=== PATIENT | female | born 1985 | race Caucasian/White ===

== ENCOUNTER 2018-05-09 22:59 | Observation (INO) ==
[2018-05-09] MEDS ORDERED: 0.9 % Sodium Chloride 1,000 ML IVC ONE (23:32)
[2018-05-09] MEDS ORDERED: Ondansetron 4 MG/2 ML VIAL IVP ONE (23:33)
--- NOTE | 2018-05-09 23:38 | Emergency Department Note ---
Disposition Clinical Impression: Gastroenteritis Disposition: Admitted As Inpatient Condition: Fair Time of Disposition: 00:53 Abdominal Pain HPI - General Chief Complaint: ED Abdominal Pain Stated Complaint: stomach pain nausea dry heaving fast heart rate Time Seen by Provider: 05/09/18 23:30 Source: patient Nursing Notes Reviewed: Yes Vital Signs Reviewed: Yes - History of Present Illness HPI Narrative: 4 days ago Miss Rendon noticed some mid upper abdominal pain that she describes as "burning" in nature. No radiation to the back or lower into the abdomen. She does describe some burning into the chest with some mild shortness of breath as well. She has been throwing up frequently especially right after trying to eat for the last 4 days including a lot of dry heaving tonight. Urine output is decreased. She has had some yellowish diarrhea over the last couple of days as well. No recent travel. No ill contacts with similar symptoms. 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 Pain Scale: 6 - Related Data Home Medications Medication Instructions Recorded Confirmed Medroxyprogesterone Acetate 150 mg IM Q3M 05/09/18 05/09/18 [Depo-Provera] Pantoprazole Sodium [Protonix] 40 mg PO DAILY 05/09/18 05/09/18 Allergies Allergy/AdvReac Type Severity Reaction Status Date / Time codeine Allergy Hives Verified 05/09/18 23:10 Sulfa (Sulfonamide Allergy See Verified 05/09/18 23:10 Antibiotics) Comments Constitutional: Reports: fever (Subjective fever), chills ENT ED: Denies: dysphagia Cardiovascular: Reports: as per HPI, chest pain Respiratory: Denies: cough Gastrointestinal: Reports: abdominal pain, nausea, vomiting, diarrhea. Denies: melena, hematochezia Genitourinary: Reports: as per HPI, abnormal menses (No menses secondary to depo shot) Musculoskeletal: Denies: myalgia Neurological: Reports: other (Dizzy and lightheaded on standing the last couple of days) Endocrine: Reports: fatigue Abdominal Pain PMH - Past Medical History Medical history: Reports: GERD Female Surgical History: Reports: cholecystectomy, orthopedic, other, other [employer] history: Reports: endometriosis Psychiatric history: Reports: anxiety, depression - Social History Smoking status: Never smoker Alcohol use: Reports: none Drug use: Reports: none Physical Exam - General Limitations: no limitations General appearance: alert, other (Appears tired) - Head Head exam: atraumatic, normocephalic - Eye Eye exam: Present: normal appearance. Absent: scleral icterus - ENT ENT exam: mucous membranes dry - Respiratory Respiratory exam: Present: normal lung sounds bilaterally. Absent: respiratory distress - Cardiovascular Cardiovascular exam: Present: normal rhythm, tachycardia, normal heart sounds. Absent: systolic murmur, diastolic murmur - Abdominal Exam Abdominal exam: Present: soft, tenderness, normal bowel sounds, other ( Palpation of epigastrium induced nausea). Absent: distention, guarding, rebound , rigidity Abdominal tenderness: Present: epigastrium, moderate - Extremities Exam Extremities exam: Present: normal inspection. Absent: normal capillary refill ( Capillary refill somewhat delayed at 3 seconds), pedal edema - Neurological Exam Neurological exam: Present: alert - Psychiatric Psychiatric exam: Present: normal affect, normal mood - Skin Skin exam: Present: warm, dry Course Vital Signs Temperature 99 F 05/09/18 23:13 Pulse Rate 111 05/09/18 23:13 Respiratory Rate 16 05/09/18 23:13 Blood Pressure 135/98 05/09/18 23:13 O2 Sat by Pulse Oximetry 96 05/09/18 23:13 Temperature 99 F 05/09/18 23:13 Pulse Rate 104 05/10/18 01:53 Respiratory Rate 18 05/10/18 01:53 Blood Pressure 119/74 05/10/18 01:53 O2 Sat by Pulse Oximetry 98 05/10/18 01:53 Oxygen Delivery Oxygen Delivery Room Air Abdominal Pain - MDM Narrative Medical decision making narrative: Gastroenteritis. She continued to feel nauseated however did not have further emesis during her time here in the emergency department. Nevertheless she did require Zofran and Phenergan but still does not feel as though she is up to a by mouth challenge. Vital signs are better but she is still feeling somewhat dizzy and lightheaded when she went to urinate a second time. She did show some signs of significant dehydration on presentation and it would probably be most prudent to rest her bowels continue to give her IV fluids and control her nausea. Repeat abdominal exam after acute abdominal series resulted demonstrates positive bowel sounds nondistended still has some tenderness in the epigastric region but not as much as initially and repeat palpation did not induce further nausea. I do not think that she has a surgical or acute abdomen. I spoke with the covering hospitalist and presented the case. He accepted admission. Ms. Rendon will be transferred to the floor in stable condition. - Lab Data Lab results reviewed: Yes I reviewed the patient's lab results. Result diagrams: 05/09/18 22:50 05/09/18 22:50 Lab Results 05/09/18 05/09/18 05/09/18 Range/Units 22:50 22:50 22:50 WBC 6.5 (4.3-11.1) K/mcL RBC 4.28 (3.82-4.97) M/mcL Hgb 13.9 (11.5-15.4) g/dL Hct 38.7 (35.3-44.9) % MCV 90.4 (83.0-100.0) fL MCH 32.5 (28.0-33.3) pg MCHC 35.9 H (31.6-35.5) g/dL RDW 11.5 (11.5-14.5) % Plt Count 223 (140-400) K/mcL MPV 10.2 (9.4-12.4) fL Immature Gran % 0.2 (0-4) % Seg Neutrophils % 59.4 % Lymphocytes % 33.0 % Monocytes % 5.7 % Eosinophils % 1.4 % Basophils % 0.3 % Neutrophils # 3.9 (1.6-8.9) K/mcL Lymphocytes # 2.1 (0.6-4.6) K/mcL Monocytes # 0.4 (0.0-1.3) K/mcL Eosinophils # 0.1 (0.0-0.6) K/mcL Basophils # 0.0 (0.0-0.2) K/mcL Sodium 135 L (136-145) mEq/L Potassium 3.4 L (3.5-5.1) mEq/L Chloride 102 (98-107) mEq/L Carbon Dioxide 21 L (23-29) mEq/L BUN 10 (6-20) mg/dL Creatinine 0.98 (0.60-1.20) mg/dL Est GFR ( Amer) > 60 (> 60) Est GFR (Non-Af Amer) > 60 (> 60) BUN/Creatinine Ratio 10 (6-26) Glucose 96 (70-105) mg/dL Calculated Osmolality 279 L (280-300) Lactic Acid 0.7 (0.5-2.2) mmol/L Calcium 9.9 (8.6-10.3) mg/dL Magnesium 2.0 (1.6-2.6) mg/dL Total Bilirubin 1.3 H (0.3-1.0) mg/dL Direct Bilirubin (0.0-0.2) mg/dL AST 18 (13-39) Units/L ALT 18 (7-52) Units/L Alkaline Phosphatase 48 (34-104) Units/L Serum Total Protein 7.3 (6.4-8.9) g/dL Albumin 4.6 (3.5-5.7) g/dL Globulin 2.7 (2.4-3.5) g/dL Albumin/Globulin Ratio 1.7 (1.1-2.2) Amylase (29-103) Units/L Lipase (11-82) Units/L Urine Color (Yellow) Urine Clarity (Clear) Urine pH (5.0-8.0) pH Units Ur Specific [place] (1.010-1.025) Urine Protein (Neg-Trace) mg/dL Urine Glucose (UA) (Normal) mg/dL Urine Ketones (Negative) mg/dL Urine Blood (Negative) Urine Nitrite (Negative) Urine Bilirubin (Negative) Urine Urobilinogen (Normal) mg/dL Ur Leukocyte Esterase (Negative) Urine Microscopic RBC (0-3) per hpf Ur Squamous Epith Cells (None-Few) per lpf Amorphous Sediment (Few) Ur Culture Indicated? (NO) Urine Test (Negative) 05/09/18 05/09/18 05/09/18 Range/Units 22:50 23:52 23:52 WBC (4.3-11.1) K/mcL RBC (3.82-4.97) M/mcL Hgb (11.5-15.4) g/dL Hct (35.3-44.9) % MCV (83.0-100.0) fL MCH (28.0-33.3) pg MCHC (31.6-35.5) g/dL RDW (11.5-14.5) % Plt Count (140-400) K/mcL MPV (9.4-12.4) fL Immature Gran % (0-4) % Seg Neutrophils % % Lymphocytes % % Monocytes % % Eosinophils % % Basophils % % Neutrophils # (1.6-8.9) K/mcL Lymphocytes # (0.6-4.6) K/mcL Monocytes # (0.0-1.3) K/mcL Eosinophils # (0.0-0.6) K/mcL Basophils # (0.0-0.2) K/mcL Sodium (136-145) mEq/L Potassium (3.5-5.1) mEq/L Chloride (98-107) mEq/L Carbon Dioxide (23-29) mEq/L BUN (6-20) mg/dL Creatinine (0.60-1.20) mg/dL Est GFR ( Amer) (> 60) Est GFR (Non-Af Amer) (> 60) BUN/Creatinine Ratio (6-26) Glucose (70-105) mg/dL Calculated Osmolality (280-300) Lactic Acid (0.5-2.2) mmol/L Calcium (8.6-10.3) mg/dL Magnesium (1.6-2.6) mg/dL Total Bilirubin (0.3-1.0) mg/dL Direct Bilirubin (0.0-0.2) mg/dL AST (13-39) Units/L ALT (7-52) Units/L Alkaline Phosphatase (34-104) Units/L Serum Total Protein (6.4-8.9) g/dL Albumin (3.5-5.7) g/dL Globulin (2.4-3.5) g/dL Albumin/Globulin Ratio (1.1-2.2) Amylase 38 (29-103) Units/L Lipase 19 (11-82) Units/L Urine Color Yellow (Yellow) Urine Clarity Slightly Cloudy A (Clear) Urine pH 5.5 (5.0-8.0) pH Units Ur Specific [place] >= 1.030 H (1.010-1.025) Urine Protein 30 H (Neg-Trace) mg/dL Urine Glucose (UA) Normal (Normal) mg/dL Urine Ketones 40 H (Negative) mg/dL Urine Blood Small H (Negative) Urine Nitrite Negative (Negative) Urine Bilirubin Moderate H (Negative) Urine Urobilinogen Normal (Normal) mg/dL Ur Leukocyte Esterase Negative (Negative) Urine Microscopic RBC 3-5 H (0-3) per hpf Ur Squamous Epith Cells Few (None-Few) per lpf Amorphous Sediment Few (Few) Ur Culture Indicated? NO (NO) Urine Test Negative (Negative) 05/10/18 Range/Units 00:00 WBC (4.3-11.1) K/mcL RBC (3.82-4.97) M/mcL Hgb (11.5-15.4) g/dL Hct (35.3-44.9) % MCV (83.0-100.0) fL MCH (28.0-33.3) pg MCHC (31.6-35.5) g/dL RDW (11.5-14.5) % Plt Count (140-400) K/mcL MPV (9.4-12.4) fL Immature Gran % (0-4) % Seg Neutrophils % % Lymphocytes % % Monocytes % % Eosinophils % % Basophils % % Neutrophils # (1.6-8.9) K/mcL Lymphocytes # (0.6-4.6) K/mcL Monocytes # (0.0-1.3) K/mcL Eosinophils # (0.0-0.6) K/mcL Basophils # (0.0-0.2) K/mcL Sodium (136-145) mEq/L Potassium (3.5-5.1) mEq/L Chloride (98-107) mEq/L Carbon Dioxide (23-29) mEq/L BUN (6-20) mg/dL Creatinine (0.60-1.20) mg/dL Est GFR ( Amer) (> 60) Est GFR (Non-Af Amer) (> 60) BUN/Creatinine Ratio (6-26) Glucose (70-105) mg/dL Calculated Osmolality (280-300) Lactic Acid (0.5-2.2) mmol/L Calcium (8.6-10.3) mg/dL Magnesium (1.6-2.6) mg/dL Total Bilirubin (0.3-1.0) mg/dL Direct Bilirubin 0.3 H (0.0-0.2) mg/dL AST (13-39) Units/L ALT (7-52) Units/L Alkaline Phosphatase (34-104) Units/L Serum Total Protein (6.4-8.9) g/dL Albumin (3.5-5.7) g/dL Globulin (2.4-3.5) g/dL Albumin/Globulin Ratio (1.1-2.2) Amylase (29-103) Units/L Lipase (11-82) Units/L Urine Color (Yellow) Urine Clarity (Clear) Urine pH (5.0-8.0) pH Units Ur Specific [place] (1.010-1.025) Urine Protein (Neg-Trace) mg/dL Urine Glucose (UA) (Normal) mg/dL Urine Ketones (Negative) mg/dL Urine Blood (Negative) Urine Nitrite (Negative) Urine Bilirubin (Negative) Urine Urobilinogen (Normal) mg/dL Ur Leukocyte Esterase (Negative) Urine Microscopic RBC (0-3) per hpf Ur Squamous Epith Cells (None-Few) per lpf Amorphous Sediment (Few) Ur Culture Indicated? (NO) Urine Test (Negative) - Radiology Data Radiology results reviewed: Yes I reviewed the patient's radiology results. - EKG Data EKG attestation: Yes I reviewed and interpreted this EKG. EKG results narrative: EKG as interpreted by me sinus tachycardia 111 bpm no T-wave abnormalities. No ST elevation. ST depression in all inferior leads V3 V4 V5 V6. Normal axis. No evidence of hypertrophy. No comparison available.
[2018-05-09 23:56] LABS: Basophils % 0.3 %; Eosinophils # 0.1 K/mcL (0.0-0.6); Eosinophils % 1.4 %; Hematocrit 38.7 % (35.3-44.9); Hemoglobin 13.9 g/dL (11.5-15.4); Immature Granulocytes % 0.2 % (0-4); Lymphocytes # 2.1 K/mcL (0.6-4.6); Mean Corpuscular HGB Conc 35.9 g/dL (31.6-35.5); Mean Corpuscular Hemoglobin 32.5 pg (28.0-33.3); Mean Corpuscular Volume 90.4 fL (83.0-100.0); Mean Platelet Volume 10.2 fL (9.4-12.4); Monocytes # 0.4 K/mcL (0.0-1.3); Monocytes % 5.7 %; Neutrophils # 3.9 K/mcL (1.6-8.9); Platelet Count 223 K/mcL (140-400); Red Blood Count 4.28 M/mcL (3.82-4.97); Red Cell Distribution Width 11.5 % (11.5-14.5); Segmented Neutrophils % 59.4 %
[2018-05-09 23:59] LABS: Bilirubin,Urine Moderate (Negative); Blood,Urine Small (Negative); Clarity,Urine Slightly Cloudy (Clear); Color,Urine Yellow (Yellow); Glucose,Urine (UA) Normal (Normal); Ketones,Urine 40 mg/dL (Negative); Leukocyte Esterase,Urine Negative (Negative); Nitrite,Urine Negative (Negative); PH,Urine 5.5 pH Units (5.0-8.0); Protein,Urine 30 mg/dL (Neg-Trace); Specific Gravity,Urine >= 1.030 (1.010-1.025); Urobilinogen,Urine Normal (Normal)
[2018-05-10 00:08] LABS: Alanine Aminotransferase 18 Units/L (7-52); Albumin 4.6 g/dL (3.5-5.7); Albumin/Globulin Ratio 1.7 (1.1-2.2); Alkaline Phosphatase 48 Units/L (34-104); Amylase 38 Units/L (29-103); Aspartate Amino Transferase 18 Units/L (13-39); BUN/Creatinine Ratio 10 (6-26); Bilirubin,Total 1.3 mg/dL (0.3-1.0); Blood Urea Nitrogen 10 mg/dL (6-20); Calcium 9.9 mg/dL (8.6-10.3); Carbon Dioxide 21 mEq/L (23-29); Chloride 102 mEq/L (98-107); Globulin 2.7 g/dL (2.4-3.5); Glucose 96 mg/dL (70-105); Lipase 19 Units/L (11-82); Osmolality,Calculated 279 (280-300); Potassium 3.4 mEq/L (3.5-5.1); Sodium 135 mEq/L (136-145); Total Protein 7.3 g/dL (6.4-8.9); eGFR For Non-African Americans > 60 (> 60)
[2018-05-10 00:08] LABS: Amorphous Sediment,Urine Few (Few); Squamous Epithelial Cell,Urine Few per lpf (None-Few)
[2018-05-10] MEDS ORDERED: 0.9 % Sodium Chloride 1,000 ML IVC ONE (00:48)
[2018-05-10] MEDS ORDERED: *HR* Promethazine 25 MG/ML VIAL IVP ONE (00:49)
[2018-05-10] MEDS ORDERED: Ondansetron 4 MG/2 ML VIAL IVP ONE (01:22)
[2018-05-10] MEDS ORDERED: *HR* Promethazine 25 MG/ML VIAL IVP PRN (01:54)
[2018-05-10] MEDS ORDERED: Naloxone 0.4 MG/ML INJ IVP PRN (01:54)
[2018-05-10] MEDS ORDERED: Ondansetron 4 MG/2 ML VIAL IVP PRN (01:54)
[2018-05-10] MEDS: Ringers Solution, Lactated 1,000 ML IVC SCH ×2 (02:50→09:43)
[2018-05-10] MEDS ORDERED: Ondansetron ODT 4 MG TAB.RAPDIS SL PRN (09:38)
--- NOTE | 2018-05-10 09:59 | Internal Med History&Physical ---
Date of Encounter: 05/10/18 Time of Encounter: 09:57 Assessment and Plan (1) Gastroenteritis Current visit: Yes Status: Acute continue zofran and phenergan as needed. continue IVF. improving. no vomitting or diarrhea since coming to ER. Internal Medicine - H&P: HPI Admitted From: Emergency Dept Plans for Post Hospital Care: Home History of present illness: Ms. Rendon is a 32 year old female here for observation after presenting to the emergency room last night. Complaining of a 4 day history of nausea, vomiting and diarrhea. States abdomen has been burning. Takes Protonix at home for the past 2 years. Has not had any recent travel and unaware of ill contacts. Denies fever, or chills. Has not had any episodes of vomiting or diarrhea since she has been to the emergency room. Denies shortness of breath or chest pain. Has been able to keep down some water. Past Med Surg Social Fam HX - Past Medical History Medical history: GERD Psychiatric history: anxiety, depression - Past Surgical History Surgical History: cholecystectomy Additional surgical history: Rectocele repair, Lumbar Fusion L5-S1 - Social History Smoking Status: Never smoker Smokeless Tobacco Status: No Alcohol use: none Drug use: none - Family History Mother History Unknown: Yes Father Hx Family Cardiac Disorders: Yes (ME) Hx Family Neuromuscular Disorders: Yes (CVA) Internal Medicine - H&P: Meds Medroxyprogesterone Acetate [Depo-Provera] 150 mg IM Q3M 05/09/18 [History] Pantoprazole Sodium [Protonix] 40 mg PO DAILY 05/09/18 [History] 3 Allergy/AdvReac Type Severity Reaction Status Date / Time codeine Allergy Hives Verified 05/09/18 23:10 Sulfa (Sulfonamide Allergy See Verified 05/09/18 23:10 Antibiotics) Comments All Systems PM: A 10-system review of systems was performed and is negative for pertinent findings except as documented above in the HPI. - Constitutional Constitutional: no chills, no fever(s), no night sweats - EENT Eyes: no change in vision, no discharge, no pain, no photophobia Ears: no ear discharge, no ear pain, no tinnitus Nose, mouth and throat: no dysphagia, no nasal discharge, no neck pain, no sore throat - Cardiovascular Cardiovascular ROS IM: no chest pain, no diaphoresis, no dyspnea, no lightheadedness, no palpitations, no syncope - Respiratory Respiratory: no cough, no dyspnea, no wheezing, no excessive phlegm production - Gastrointestinal Gastrointestinal: nausea, no abdominal pain, no diarrhea, no hematemesis, no hematochezia, no melena, no vomiting - Genitourinary Genitourinary: no change in urinary stream, no dysuria, no flank pain, no hematuria - Musculoskeletal Musculoskeletal ROS IM: no numbness, no tingling - Integumentary Integumentary IM: no rash, no unusual bruising - Neurological Neurological ROS: no confusion, no convulsions, no focal weakness, no numbness, no tingling, no tremor(s) - Hematologic/Lymphatic Hematologic/Lymphatic: no easy bruising - Constitutional Vitals: Temp Pulse Resp BP Pulse Ox 98.2 F 103 16 121/81 97 05/10/18 07:25 05/10/18 07:25 05/10/18 07:25 05/10/18 07:25 05/10/18 07:25 General appearance: Present: cooperative, A&O X 3, pleasant, no acute distress, answers questions appropriately - Head Head exam: Present: atraumatic, normocephalic - Eye Eye exam: Present: PERRL, conjuntiva pink, sclera anicteric Pupils: Present: PERRL - Neck Neck exam general surgery: Present: supple, trachea midline. Absent: lymphadenopathy - Respiratory Respiratory exam: Present: CTAB. Absent: accessory muscle use, rales, rhonchi, wheezes - Cardiovascular Cardiovascular exam: Present: RRR, +S1, +S2. Absent: diastolic murmur, gallop, rubs, systolic murmur - GI/Abdominal GI/Abdominal exam: Present: normal bowel sounds, soft, no peritoneal signs. Absent: distended, tenderness Additional comments: no tenderness with palpation. - Extremities Exam Extremities exam: Present: warm, radial pulses palpable and symmetrical. Absent : calf tenderness, cyanotic, pedal edema - Neurological Exam Neurological exam: Present: CN II-XII intact, oriented X3, no focal deficits. Absent: pronater drift, facial droop, speech deficit - Skin Skin exam: Present: dry, intact Internal Med - H&P Results - Labs CBC & Chem 7: 05/09/18 22:50 05/09/18 22:50 - VTE Reasons for not Prescribing Prophylaxis: Treatment not Indicated - Low risk for VTE
[2018-05-10 10:19] LABS: Albumin/Globulin Ratio 1.7 (1.1-2.2); Bilirubin,Direct 0.2 mg/dL (0.0-0.2); Bilirubin,Total 1.2 mg/dL (0.3-1.0); Globulin 2.3 g/dL (2.4-3.5); Total Protein 6.3 g/dL (6.4-8.9)
[2018-05-10 10:20] LABS: BUN/Creatinine Ratio 8 (6-26); Blood Urea Nitrogen 7 mg/dL (6-20); Calcium 9.1 mg/dL (8.6-10.3); Carbon Dioxide 22 mEq/L (23-29); Chloride 109 mEq/L (98-107); Glucose 90 mg/dL (70-105); Osmolality,Calculated 288 (280-300); Potassium 3.8 mEq/L (3.5-5.1); Sodium 140 mEq/L (136-145); eGFR For Non-African Americans > 60 (> 60)
[2018-05-10 16:27] VITALS: BP 129/81
--- NOTE | 2018-05-10 17:15 | Discharge Summary ---
- NOTES TO OUTPATIENT PROVIDER Notes to Outpatient Provider: Patient may have symptoms of panic disorder. Will defer to outpatient provider. Date of Encounter: 05/10/18 Time of Encounter: 17:13 - Discharge Diagnosis (1) Gastroenteritis Priority: Primary Status: Acute Hospital course: Ms. Rendon is a 32 year old female with history of nausea and vomiting and diarrhea. She improved with the hospital and wanted to go home. Please see H&P this date. - Time Spent with Patient Total time spent providing and/or coordinating discharge services: - Discharge Medications Home Medications: Medroxyprogesterone Acetate [Depo-Provera] 150 mg IM Q3M 05/09/18 [History] Pantoprazole Sodium [Protonix] 40 mg PO DAILY 05/09/18 [History] Ondansetron HCl [Zofran] 4 mg SL Q6HR PRN #30 tab 05/10/18 [Rx] Allergies/Adverse Reactions: 3 Allergy/AdvReac Type Severity Reaction Status Date / Time codeine Allergy Hives Verified 05/09/18 23:10 Sulfa (Sulfonamide Allergy See Verified 05/09/18 23:10 Antibiotics) Comments Date of admission: 05/10/18 01:49 Primary care physician: Dallin Child MD Discharging clinician: Chang Borges Anticipated date of discharge: 05/10/18 - Constitutional Vitals: Temp Pulse Resp BP Pulse Ox 98.2 F 85 18 129/81 97 05/10/18 16:26 05/10/18 16:26 05/10/18 16:26 05/10/18 16:26 05/10/18 16:26 General appearance: Present: answers questions appropriately Exam: Please see H&P this date - Patient Status Disposition: Home, Self-Care Condition: Fair - Discharge Instructions Follow Up With: Dallin Child MD [Primary Care Provider] - - VTE Reasons for not Prescribing Prophylaxis: Treatment not Indicated - Low risk for VTE
--- NOTE | 2018-05-11 08:17 | Electrocardiograph Report ---
[place] [id number] Test Date: 2018-05-09 Pat Name: Maria Esther Rendon Department: 2000 Room: 113 Gender: F [employer]ch[employer] Team Leader: : 1985 Requested By: Eugene Acharya Order Number: [id number] Reading MD: Benny Sow Measurements Intervals [place] Rate: 111 P: 75 HI: 156 QRS: 46 QRSD: 92 T: 56 QT: 323 QTc: 389 Interpretive Statements SINUS TACHYCARDIA NONSPECIFIC ST-T WAVE ABNORMALITIES Electronically Signed On 05-11-2018 8:15:29 EDT by Benny Sow
== END 2018-05-10 17:46 | disposition home or self-care (01) ==
LOC: INPGRE 22:59 → EMEROOGRE 22:59 → INPGRE 05-10 01:58